=== PATIENT | female | born 1965 | race Caucasian/White ===

== ENCOUNTER 2019-08-02 18:49 | Emergency (ER) | payer OTHER, SELFPAY ==
--- NOTE | 2019-08-02 18:59 | ED.URI ---
HPI - URI/Sore Throat General Chief Complaint: Unspecified Stated Complaint: wheezing no inhaler Time Seen by Provider: 08/02/19 18:59 Source: patient and RN notes reviewed History of Present Illness HPI Narrative: Patient is a 53-year-old female who presents the urgent care with request of inhaler and nebulizer refills. Patient states that her doctor was unable to get her in for another week and she needs the refills. Patient states that she has COPD and cannot do without her inhaler or nebulizers. Patient states she does have intermittent wheezing which is chronic for her. Otherwise, patient has no acute upper respiratory complaints at this time. No other acute complaints. No acute distress noted. Patient read the plan of care. Related Data Home Medications Medication Instructions Recorded Confirmed albuterol sulfate 2.5 mg INHALATION Q6H 08/02/19 08/02/19 albuterol sulfate [ProAir HFA] 2 puff INHALATION QID 08/02/19 08/02/19 Allergies Allergy/AdvReac Type Severity Reaction Status Date / Time No Known Allergies Allergy Verified 08/02/19 19:08 Review of Systems Review of Systems: Narrative: CONSTITUTIONAL: Denies fever, chills, or sweats. EYES: Denies visual changes, redness, or discharge. ENT: Denies rhinorrhea, congestion, sore throat, or otalgia. CARDIOVASCULAR: Denies chest pain, palpitations, or edema. RESPIRATORY: Denies cough or dyspnea. GASTROINTESTINAL: Denies abdominal pain, nausea, vomiting, or diarrhea. GENITOURINARY: Denies dysuria or hematuria. SKIN: Denies rash or itching. MUSCULOSKELETAL: Denies back pain, joint pain, or myalgia. NEUROLOGIC: Denies headache, numbness, or weakness. All other systems reviewed are negative, except as documented in HPI. PMFSH Comments At the time of my signature, I reviewed and agree with the nursing past medical, surgical, social, and family history. There is no relevant family history pertinent to the patient complaint. Exam Narrative: Exam Narrative: GENERAL: This is a well-nourished, well-developed patient, in no apparent distress. HEAD: normocephalic, atraumatic. EYES: PERRL. Sclera clear/white. Vision is grossly intact. EARS: External ears normal NOSE: External nose normal with no obvious nasal discharge, nares without redness, no rhinorrhea. THROAT: Mucous membranes moist NECK: Neck supple CARDIOVASCULAR: Regular rate and rhythm without murmurs, gallops, or rubs. RESPIRATORY: Clear to auscultation. Breath sounds equal bilaterally. No wheezes, rales, or rhonchi. SKIN: warm, intact with no suspicious lesions or rash, good texture and turgor. NEURO: awake, alert, and oriented to person, place and time. There were no obvious focal neurologic abnormalities. EXTREMITIES: No clubbing, cyanosis, or edema. Course Vital Signs Vital signs: Vital Signs Pulse Rate 118 H 08/02/19 19:08 Respiratory Rate 08/02/19 19:08 Blood Pressure 139/89 08/02/19 19:08 Pulse Oximetry 100 08/02/19 19:08 Pulse Rate 118 H 08/02/19 19:08 Respiratory Rate 08/02/19 19:08 Blood Pressure 139/89 08/02/19 19:08 Pulse Oximetry 100 08/02/19 19:08 Reviewed MDM - URI/Sore Throat MDM Narrative Medical decision making narrative: Patient is aware that we are not a facility for chronic refills, however we will refill her medication for her COPD. Use the medication as directed. Follow-up with your PCP within 2 to 5 days or for worsening symptoms or failure to improve. Differential Diagnosis Differential diagnosis: Likely upper respiratory infection, otitis media, sinusitis, viral infection, bronchitis and pharyngitis Critical Care Time Critical Care Time Critical Care Time: No Discharge Plan Discharge Clinical Impression: Medication refill Patient Disposition: Home, Self-Care Condition: Stable Instructions: Antibiotic Form, COPD (Chronic Obstructive Pulmonary Disease) (DC) Additional Instructions: Patient is aware that we are not a facility
[2019-08-02 19:08] VITALS: BP 139/89; PULSE 118; RESP 20; O2SAT 100
== END 2019-08-02 19:18 | disposition home or self-care (01) ==
PROVIDERS: Emergency Provider Nurse Practitioner Family
DX: J44.9 Chronic obstructive pulmonary disease, unspecified (principal); I10 Essential (primary) hypertension
CPT/HCPCS: 99211; G0463

== ENCOUNTER 2019-10-01 16:45 | Emergency (ER) | payer OTHER, SELFPAY ==
[2019-10-01 16:50] VITALS: BP 147/90; PULSE 114; RESP 16; TEMP 37.1; O2SAT 99
--- NOTE | 2019-10-01 17:02 | ED.GENADULT ---
HPI - General Adult General Chief complaint: Shortness of Breath/Dyspnea Stated complaint: SOB Time Seen by Provider: 10/01/19 17:03 Source: patient and RN notes reviewed Mode of arrival: ambulatory Limitations: no limitations History of Present Illness HPI narrative: This is a 53 years old female presented office for an evaluation of shortness of breath on exertion and a refill on her albuterol rescue inhaler. She ran out of her inhaler before she able to establish care with a new doctor. She is also reported feeling anxious because she does not want to be intubated again for her shortness of breath. She has been using her nebulizer 3 times a day and rescue inhaler in addition when she needs it. She was a former smoker quit after she was intubated. Related Data Allergies Allergy/AdvReac Type Severity Reaction Status Date / Time No Known Allergies Allergy Verified 10/01/19 17:13 Review of Systems Review of Systems: Narrative: CONSTITUTIONAL: Denies fever, chills ENT: Denies rhinorrhea, congestion, sore throat, otalgia. CARDIOVASCULAR: Denies chest pain, palpitation, edema. RESPIRATORY: Reports dyspnea with activities with wheezing GASTROINTESTINAL: Denies abdominal pain, nausea, vomiting, diarrhea. SKIN: Denies rash MUSCULOSKELETAL: Denies acute back pain NEUROLOGIC: Denies lightheaded All other systems reviewed are negative, except as documented in HPI. [facility] Past Medical History Medical History (Updated 10/01/19 @ 17:16 by LINDSEY Wheeler) Asthma COPD (chronic obstructive pulmonary disease) HTN (hypertension) Social History Social History (Updated 10/01/19 @ 17:39 by LINDSEY Wheeler) Smoking status: Former smoker Comments At time of signature, I agree with nursing past medical, surgical, social and family history. There is no relevant family history pertinent to the presenting complaint. Exam Narrative: Exam Narrative: GENERAL: This is a well-nourished, well-developed patient, in no apparent distress. THROAT: Mucous membranes moist, posterior pharynx clear. NECK: Neck supple, non-tender without lymphadenopathy, masses or thyromegaly. CARDIOVASCULAR: Regular rate and rhythm without murmurs, gallops, or rubs. RESPIRATORY: Diminished throughout except left upper lobe noted expiratory wheezing. Breath sounds equal bilaterally. No use of accessory muscle. No pursed lip breathing. GASTROINTESTINAL: Abdomen soft, non-tender, nondistended. Bowel sounds are active. No hepato-splenomegaly, or palpable masses. No guarding. SKIN: warm, intact with no suspicious lesions or rash, good texture and turgor. NEURO: awake, alert, and oriented to person, place and time. There were no obvious focal neurologic abnormalities. Steady gait Elen Coma Scale Eye Opening: Spontaneous 4 Elen Coma Scale Motor: Obeys Commands 6 Elen Coma Scale Verbal: Oriented 5 Course Vital Signs Vital signs: Vital Signs Temperature 98.8 F 10/01/19 16:50 Pulse Rate 114 H 10/01/19 16:50 Respiratory Rate 16 10/01/19 16:50 Blood Pressure 147/90 H 10/01/19 16:50 Pulse Oximetry 99 10/01/19 16:50 Temperature 98.8 F 10/01/19 16:50 Pulse Rate 80 10/01/19 17:20 Respiratory Rate 16 10/01/19 16:50 Blood Pressure 147/90 H 10/01/19 16:50 Pulse Oximetry 99 10/01/19 16:50 Medical Decision Making [facility] Narrative Medical decision making narrative: Spent a lot of time educating patient when to use albuterol inhaler. I strongly advised against using nebulizer albuterol and rescue inhaler albuterol at the same time since they both are the same medication. Patient verbalized understanding, stated she must have misunderstood the instruction from the doctor. Discharge instructions reviewed with patient, as well as provided in writing per nursing staff. The instructions also include specific and strict return/GO TO THE ER as well as f/u information. All questions have been answered, and the patient deny a
[2019-10-01 17:20] VITALS: PULSE 80
== END 2019-10-01 17:20 | disposition home or self-care (01) ==
PROVIDERS: Emergency Provider Nurse Practitioner
DX: J45.21 Mild intermittent asthma with (acute) exacerbation (principal); J44.9 Chronic obstructive pulmonary disease, unspecified; I10 Essential (primary) hypertension; Z87.891 Personal history of nicotine dependence
CPT/HCPCS: 99213; G0463